=== PATIENT | female | born 1995 | race Caucasian/White ===

== ENCOUNTER → 2019-07-29 | Outpatient (CLI) | payer OTHER | END | disposition home or self-care (01) | LOC: US 15:00 | DX: Z34.01 Encounter for supervision of normal first pregnancy, first trimester (principal); Z3A.11 11 weeks gestation of pregnancy ==

== ENCOUNTER → 2019-08-13 | Outpatient (CLI) | payer OTHER | END | disposition home or self-care (01) | LOC: LAB 10:55 | DX: O26.891 Other specified pregnancy related conditions, first trimester (principal); R30.0 Dysuria; Z3A.13 13 weeks gestation of pregnancy ==

== ENCOUNTER → 2019-08-26 | Outpatient (CLI) | payer OTHER ==
[2019-08-27 11:07] LABS: MICROALBUMIN, 24HR URINE <2.8 mg/day (<30.0)
== END | disposition home or self-care (01) ==
LOC: LAB 15:23
PROVIDERS: Internal Medicine Endocrinology, Diabetes & Metabolism
DX: Z34.01 Encounter for supervision of normal first pregnancy, first trimester (principal); Z3A.15 15 weeks gestation of pregnancy

== ENCOUNTER → 2019-12-24 | Outpatient (CLI) | payer OTHER ==
[2019-12-25 09:05] LABS: MICROALBUMIN, 24HR URINE <4 mg/day (0-29)
== END | disposition home or self-care (01) ==
LOC: LAB 15:39
PROVIDERS: Obstetrics & Gynecology
DX: O26.893 Other specified pregnancy related conditions, third trimester (principal); R30.0 Dysuria; Z3A.32 32 weeks gestation of pregnancy

== ENCOUNTER → 2020-11-09 | Outpatient (CLI) | payer OTHER ==
[2020-11-09 10:43] LABS: ALBUMIN 3.8 gm/dl (3.1-4.5); BUN 12 mg/dl (7-24); CHLORIDE 104 mmol/L (98-107); CHOLESTEROL 163 mg/dL (<200); CREATININE 0.87 mg/dL (0.55-1.02); POTASSIUM 4.2 mmol/L (3.5-5.1); SGOT/AST 13 IU/L (3-35); SGPT/ALT 19 U/L (12-78); SODIUM 136 mmol/L (136-145); TOTAL PROTEIN 7.9 gm/dL (6.4-8.2); TRIGLYCERIDES 53 mg/dl (<150); VLDL CHOLESTEROL 11 mg/dL (6-40)
[2020-11-09 10:45] LABS: ALKALINE PHOSPHATASE 144 U/L (45-117); HDL CHOLESTEROL 51 mg/dl (40-60); LDL CHOLESTEROL 101 mg/dL (9-159)
[2020-11-10 09:07] LABS: CREATININE,URINE 52.2 mg/dL (Not Estab.); MICRO ALBUMIN/CRE RATIO <6 (0-29)
== END | disposition home or self-care (01) ==
LOC: LAB 09:46
PROVIDERS: ATTEND Internal Medicine Endocrinology, Diabetes & Metabolism
DX: E10.9 Type 1 diabetes mellitus without complications (principal); E55.9 Vitamin D deficiency, unspecified